=== PATIENT | female | born 1995 | race American Indian/Alaskan Native ===

== ENCOUNTER 2018-04-07 12:16 | Emergency (ER) | payer OTHER ==
[2018-04-07 12:33] VITALS: BP 143/84
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
[2018-04-07] MEDS ORDERED: NACL 0.9% 1000 ML 1,000 ML IV ONE (14:11)
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
[2018-04-07 14:43] LABS: Bacteria,Urine 1+ /HPF (Negative); Bilirubin,Urine NEG (Negative); Blood,Urine LG (Negative); Color,Urine Yellow (Yellow); Hyaline Casts,Urine 1 /LPF; Mucus,Urine 2+ /HPF
[2018-04-07 14:44] LABS: HCG Qualitative,Urine Negative (Negative)
[2018-04-07 15:27] LABS: Basophils # (Auto) 0.1 K/mm3 (0.0-0.1); Basophils % (Auto) 1.3 % (0.0-1.8); Eosinophils % (Auto) 0.2 % (0.0-4.3); Hematocrit 40.4 % (30.3-42.9); Hemoglobin 13.3 gm/dl (10.1-14.3); Lymphocytes # (Auto) 2.1 K/mm3 (1.2-5.4); Lymphocytes % (Auto) 42.5 % (13.4-35.0); Mean Corpuscular HGB Conc 33 % (30-34); Mean Corpuscular Hemoglobin 31 pg (28-32); Mean Corpuscular Volume 94 fl (79-97); Monocytes # (Auto) 0.5 K/mm3 (0.0-0.8); Monocytes % (Auto) 10.2 % (0.0-7.3); Platelet Count 154 K/mm3 (140-440); Red Blood Count 4.32 M/mm3 (3.65-5.03); Red Cell Distribution Width 13.6 % (13.2-15.2)
[2018-04-07 15:38] LABS: BUN/Creatinine Ratio 13; Blood Urea Nitrogen 8 mg/dL (7-17); Calcium 8.8 mg/dL (8.4-10.2); Hemolysis Index 33
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
== END 2018-04-07 19:16 | disposition home or self-care (01) ==
LOC: ED 12:16
DX: S32.009A Unspecified fracture of unspecified lumbar vertebra, initial encounter for closed fracture (principal); W50.0XXA Accidental hit or strike by another person, initial encounter; Y93.89 Activity, other specified; Y99.8 Other external cause status; Y92.89 Other specified places as the place of occurrence of the external cause
CPT/HCPCS: 36415; 74177; 80048; 81001; 81025; 84703; 85025; 99284; J7030; Q9967

== ENCOUNTER 2021-08-11 16:02 | Emergency (ER) | payer SELFPAY ==
[2021-08-11 16:07] VITALS: BP 112/64
[2021-08-11 16:50] LABS: Bacteria,Urine 4+ /HPF (Negative); Bilirubin,Urine NEG (Negative); Blood,Urine NEG (Negative); Color,Urine Yellow (Yellow); Mucus,Urine 3+ /HPF
[2021-08-11 16:57] LABS: HCG Qualitative,Urine Negative (Negative)
[2021-08-11] MEDS ORDERED: LIDOCAINE-MPF (1%) 10 MG/1 ML VIAL 5 ML INFILTRATI ONE (17:04)
[2021-08-11] MEDS ORDERED: metroNIDAZOLE 500 MG TAB PO ONE (17:08)
--- NOTE | 2021-08-11 17:10 | Emergency Department Report ---
ED Female HPI - General Chief complaint: Urogenital-Female Stated complaint: ABDOMINAL PAIN Time Seen by Provider: 08/11/21 16:15 Source: patient Mode of arrival: Ambulatory Limitations: No Limitations - History of Present Illness Initial comments: Patient is a 26-year-old female presents emergency room with complaints of concerns for an STD. She reports that she had a new sexual partner and then she began having lower abdominal cramping and dysuria. She denies any vaginal discharge, vaginal bleeding, fever, nausea, vomiting, diarrhea. no pmhx. no allergies to meds. LNMP 2 weeks ago. - Related Data Previous Rx's Medication Instructions Recorded Last Taken Type Acetaminophen/Codeine [Tylenol 1 tab PO Q6H PRN #12 tab 04/07/18 Unknown Rx /Codeine # 3 tab] Ibuprofen [Motrin] 600 mg PO Q8H PRN #30 tablet 04/07/18 Unknown Rx Doxycycline Hyclate [Doxycycline 100 mg PO BID 7 Days #14 tab 08/11/21 Unknown Rx Hyclate TAB] cephALEXin [Keflex] 500 mg PO BID 7 Days #14 cap 08/11/21 Unknown Rx Allergies Allergy/AdvReac Type Severity Reaction Status Date / Time No Known Allergies Allergy Unverified 04/07/18 12:29 ED Review of Systems ROS: Stated complaint: ABDOMINAL PAIN Other details as noted in HPI Comment: All other systems reviewed and negative ED Past Medical Hx - Social History Smoking Status: Never Smoker Substance Use Type: None - Medications Home Medications: Home Medications Medication Instructions Recorded Confirmed Last Taken Type Acetaminophen/Codeine [Tylenol 1 tab PO Q6H PRN #12 tab 04/07/18 Unknown Rx /Codeine # 3 tab] Ibuprofen [Motrin] 600 mg PO Q8H PRN #30 tablet 04/07/18 Unknown Rx Doxycycline Hyclate [Doxycycline 100 mg PO BID 7 Days #14 tab 08/11/21 Unknown Rx Hyclate TAB] cephALEXin [Keflex] 500 mg PO BID 7 Days #14 cap 08/11/21 Unknown Rx ED Physical Exam - General Limitations: No Limitations General appearance: alert, in no apparent distress - Head Head exam: Present: atraumatic, normocephalic - Eye Eye exam: Present: normal appearance - ENT ENT exam: Present: mucous membranes moist - Respiratory Respiratory exam: Present: normal lung sounds bilaterally. Absent: respiratory distress, wheezes, rales, rhonchi, stridor, chest wall tenderness, accessory muscle use, decreased breath sounds, prolonged expiratory - Cardiovascular Cardiovascular Exam: Present: regular rate, normal rhythm, normal heart sounds. Absent: systolic murmur, diastolic murmur, rubs, gallop - GI/Abdominal GI/Abdominal exam: Present: soft, normal bowel sounds. Absent: distended, tenderness, guarding, rebound, rigid - Neurological Exam Neurological exam: Present: alert, oriented X3 - Psychiatric Psychiatric exam: Present: normal affect, normal mood - Skin Skin exam: Present: warm, dry, intact ED Course Vital Signs 08/11/21 08/11/21 16:06 17:33 Temperature 98.1 F 98.3 F Pulse Rate 90 74 Respiratory 20 Rate Blood Pressure 112/64 [Right] O2 Sat by Pulse 98 Oximetry ED Medical Decision Making - Medical Decision Making Patient is a 26-year-old female presents emergency room with complaints of concerns for an STD. She reports that she had a new sexual partner and then she began having lower abdominal cramping and dysuria. She denies any vaginal discharge, vaginal bleeding, fever, nausea, vomiting, diarrhea. no pmhx. no allergies to meds. LNMP 2 weeks ago. Vitals are stable. Patient has no abdominal tenderness on exam. UA shows 4+ bacteria, positive nitrites. Ordered for G/C to be sent from patient's urine, informed of AURE[facility] Mancilla and jose Estes. Patient given Rocephin and 2 g of Flagyl while in the emergency department. Given prescription for doxycycline and Keflex. Advised patient please take med ication as prescribed. follow up with a clinic or health department for full STD panel. have any partner tested and treated as well. avoid sexual intercourse. return to the emergency room for any new or worsening symptoms. Critical care attestation.: If time is entered above; I have spent that time in minutes in the direct care of this critically ill patient, excluding procedure time. ED Disposition Clinical Impression: Concern about STD in female without diagnosis UTI (urinary tract infection) Qualifiers: Urinary tract infection type: acute cystitis Hematuria presence: without hematuria Qualified Code(s): N30.00 - Acute cystitis without hematuria Disposition: HOME / SELF CARE / HOMELESS Is pt being admited?: No Does the pt Need Aspirin: No Condition: Stable Instructions: Urinary Tract Infection, Adult, [id number], Safe Sex Additional Instructions: please take medication as prescribed. follow up with a clinic or health department for full STD panel. have any partner tested and treated as well. avoid sexual intercourse. return to the emergency room for any new or worsening symptoms. walk in clinic: [facility] Address: [address] [place] [id number] Prescriptions: Doxycycline Hyclate [Doxycycline Hyclate TAB] 100 mg PO BID 7 Days #14 tab cephALEXin [Keflex] 500 mg PO BID 7 Days #14 cap Referrals: PRIMARY CARE, [Primary Care Provider] - 3-5 Days [facility] [Provider Group] - 3-5 Days [facility] [Outside] - 3-5 Days Time of Disposition: 17:10 Print Language: DJIBOUTIAN
== END 2021-08-11 17:42 | disposition home or self-care (01) ==
LOC: ED 16:02
DX: Z20.2 Contact with and (suspected) exposure to infections with a predominantly sexual mode of transmission (principal); N30.00 Acute cystitis without hematuria
CPT/HCPCS: 81001; 81025; 96372; 99283; J0696; J3490

== ENCOUNTER 2022-05-31 16:12 | Emergency (ER) | payer SELFPAY ==
[2022-05-31 20:22] LABS: Basophils # (Auto) 0.1 K/mm3 (0.0-0.1); Basophils % (Auto) 1.2 % (0.0-1.8); Eosinophils % (Auto) 0.6 % (0.0-4.3); Hematocrit 42.2 % (30.3-42.9); Hemoglobin 13.8 gm/dl (10.1-14.3); Lymphocytes # (Auto) 2.3 K/mm3 (1.2-5.4); Lymphocytes % (Auto) 48.2 % (13.4-35.0); Mean Corpuscular HGB Conc 33 % (30-34); Mean Corpuscular Volume 95 fl (79-97); Monocytes # (Auto) 0.6 K/mm3 (0.0-0.8); Monocytes % (Auto) 13.5 % (0.0-7.3); Platelet Count 166 K/mm3 (140-440); Red Blood Count 4.45 M/mm3 (3.65-5.03); Red Cell Distribution Width 13.5 % (13.2-15.2)
[2022-05-31 20:25] LABS: Alanine Aminotransferase 16 units/L (7-56); Albumin 4.8 g/dL (3.9-5); Blood Urea Nitrogen 7 mg/dL (7-17); Calcium 9.5 mg/dL (8.4-10.2); Hemolysis Index 12
[2022-05-31 20:34] LABS: BUN/Creatinine Ratio 10
--- NOTE | 2022-05-31 22:23 | Emergency Department Report ---
ED Female HPI - General Chief complaint: Vaginal Bleeding Stated complaint: PROLONGED BLEEDING/BLOOD CLOTS Time Seen by Provider: 05/31/22 21:20 Source: patient Mode of arrival: Ambulatory Limitations: No Limitations - History of Present Illness Initial comments: 26-year-old female presents with vaginal bleeding. Patient describes heavy bleeding x1 week, states its about the time of her period but this bleeding feels heavier with large amount of clots". Reports she has an Implanon in which she has had since 2017, and usually does not have any problems with bleeding. She denies pelvic pain, no back pain, no history of bleeding disorder, nasal blood thinners, no abdominal pain, no chest pain, no shortness of breath, no headache dizziness or vision changes. She denies being . - Related Data Previous Rx's Medication Instructions Recorded Last Taken Type Acetaminophen/Codeine [Tylenol 1 tab PO Q6H PRN #12 tab 04/07/18 Unknown Rx /Codeine # 3 tab] Ibuprofen [Motrin] 600 mg PO Q8H PRN #30 tablet 04/07/18 Unknown Rx Doxycycline Hyclate [Doxycycline 100 mg PO BID 7 Days #14 tab 08/11/21 Unknown Rx Hyclate TAB] cephALEXin [Keflex] 500 mg PO BID 7 Days #14 cap 08/11/21 Unknown Rx Allergies Allergy/AdvReac Type Severity Reaction Status Date / Time No Known Allergies Allergy Verified 05/31/22 16:44 ED Review of Systems ROS: Stated complaint: PROLONGED BLEEDING/BLOOD CLOTS Other details as noted in HPI Constitutional: see HPI ENT: as per HPI Respiratory: denies: cough, orthopnea, shortness of breath Cardiovascular: denies: chest pain, palpitations, orthopnea Endocrine: denies: excessive sweating, intolerance to cold, intolerance to heat Gastrointestinal: nausea. denies: abdominal pain, vomiting, diarrhea, constipation Genitourinary: abnormal menses. denies: urgency, dysuria, frequency, hematuria, discharge Skin: denies: rash, lesions, change in color Neurological: denies: headache, weakness, numbness Psychiatric: denies: anxiety, depression, auditory hallucinations Hematological/Lymphatic: denies: easy bleeding ED Past Medical Hx - Past Medical History Previous Medical History?: No - Surgical History Past Surgical History?: No - Social History Smoking Status: Never Smoker Substance Use Type: None - Medications Home Medications: Home Medications Medication Instructions Recorded Confirmed Last Taken Type Acetaminophen/Codeine [Tylenol 1 tab PO Q6H PRN #12 tab 04/07/18 Unknown Rx /Codeine # 3 tab] Ibuprofen [Motrin] 600 mg PO Q8H PRN #30 tablet 04/07/18 Unknown Rx Doxycycline Hyclate [Doxycycline 100 mg PO BID 7 Days #14 tab 08/11/21 Unknown Rx Hyclate TAB] cephALEXin [Keflex] 500 mg PO BID 7 Days #14 cap 08/11/21 Unknown Rx ED Physical Exam - General Limitations: No Limitations General appearance: alert, in no apparent distress - Head Head exam: Present: atraumatic - Eye Eye exam: Present: normal appearance, PERRL Pupils: Present: normal accommodation - ENT ENT exam: Present: normal exam, normal orophraynx - Neck Neck exam: Present: normal inspection - Respiratory Respiratory exam: Present: normal lung sounds bilaterally. Absent: respiratory distress - Cardiovascular Cardiovascular Exam: Present: regular rate, normal rhythm - GI/Abdominal GI/Abdominal exam: Present: soft. Absent: distended - Extremities Exam Extremities exam: Present: normal inspection, full ROM - Back Exam Back exam: Present: normal inspection, full ROM - Neurological Exam Neurological exam: Present: alert, oriented X3, CN II-XII intact, normal gait. Absent: motor sensory deficit - Psychiatric Psychiatric exam: Present: normal affect, normal mood - Skin Skin exam: Present: warm, dry, intact, normal color ED Course Vital Signs 05/31/22 05/31/22 16:39 22:34 Temperature 98.9 F Pulse Rate 60 87 Respiratory 16 14 Rate Blood Pressure 124/84 Blood Pressure 127/80 [Left] O2 Sat by Pulse 100 100 Oximetry ED Medical Decision Making - Lab Data Result diagrams: 05/31/22 19:56 05/31/22 19:56 - Medical Decision Making Differential diagnosis includes dysfunctional uterine bleeding endometriosis endometritis, fibroids, ovarian cyst, , 26-year-old female presents with vaginal bleeding. Patient describes heavy bleeding x1 week, states its about the time of her period but this bleeding feels heavier with large amount of clots". Reports she has an Implanon in which she has had since 2017, and usually does not have any problems with bleeding. She denies pelvic pain, no back pain, no history of bleeding disorder, nasal blood thinners, no abdominal pain, no chest pain, no shortness of breath, no headache dizziness or vision changes. She denies being . Her labs are all reassuring, H&H is stable, vital signs are stable as well patient is normotensive, and her quant is neg Will discharge home with referral to follow-up with her OB, no indication for further testing or imaging at this time, symptoms are without pelvic pain or pelvic tenderness, she ambulates steadily without guarding, and she is afebrile Patient remained stable nontoxic-appearing, afebrile, ambulating steadily without assistance. Gone over ED findings with patient as well as plan for follow-up. Also discussed return precautions with patient, all questions and concerns addressed. Patient is stable to be discharged follow-up outpatient. Audio voice dictation device used, hence the chart might contain some dictation errors, mispronunciations, wrong spelling and wrong verbiage. Critical care attestation.: If time is entered above; I have spent that time in minutes in the direct care of this critically ill patient, excluding procedure time. ED Disposition Clinical Impression: DUB (dysfunctional uterine bleeding), Implanon in place Disposition: HOME / SELF CARE / HOMELESS Is pt being admited?: No Does the pt Need Aspirin: No Condition: Stable Instructions: Abnormal Uterine Bleeding Referrals: PRIMARY CARE, [Primary Care Provider] - 3-5 Days MICHAEL BANEGAS MD [Staff Physician] - 3-5 Days Forms: Work/School Release Form(ED)
[2022-05-31 22:35] VITALS: BP 127/80
== END 2022-06-01 00:05 | disposition home or self-care (01) ==
LOC: ED 16:12
DX: N93.9 Abnormal uterine and vaginal bleeding, unspecified (principal); N80.9 Endometriosis, unspecified
CPT/HCPCS: 36415; 80053; 84703; 85025; 99283